=== PATIENT | female | born 1985 | race American Indian/Alaskan Native ===

== ENCOUNTER 2019-01-31 21:15 | Emergency (ER) | payer MEDICAID ==
--- NOTE | 2019-01-31 21:55 | Event Note ---
ED Screening Note Date of service: 01/31/19 Time: 21:53 ED Screening Note: This is a 33 y.o. F. that presents to the ER with a painful abscess to left axilla x 3 days. Reports prior history of abscess. Denies drainage, fever, chills, or weakness. This initial assessment/diagnostic orders/clinical plan/treatment(s) is/are subject to change based on patients health status, clinical progression and re- assessment by fellow clinical providers in the ED. Further treatment and workup at subsequent clinical providers discretion. Patient/guardian urged not to elope from the ED as their condition may be serious if not clinically assessed and managed. Initial orders include:
[2019-02-01] MEDS ORDERED: XYLOCAINE 1% MPF 5 mL INFILTRATI ONE (01:00)
--- NOTE | 2019-02-01 01:43 | Emergency Department Report ---
- General Chief complaint: Skin/Abscess/Foreign Body Stated complaint: CYST Time Seen by Provider: 01/31/19 21:52 Source: patient Mode of arrival: Ambulatory Limitations: No Limitations - History of Present Illness Initial comments: Patient is Afro-[place] female presents for left axillary abscess 2 x 3 cm fluctuant was erythema and pain to touch this recurrent problem this patient for the last 3 years with release 1 annually station presents tonight for incision and drainage of abscess MD complaint: abscess/boil (lac ) Onset/Timin -: days(s) Location: LUE Severity: moderate Severity scale (0 -10): 5 Quality: burning, aching Consistency: constant Improves with: none Worsens with: palpation, movement Context: other (recurring abscess ) Associated symptoms: denies other symptoms Treatments Prior to Arrival: none - Related Data Previous Rx's Medication Instructions Recorded Last Taken Type Clindamycin [Clindamycin CAP] 300 mg PO Q8H 10 Days #30 cap 02/01/19 Unknown Rx traMADol [Ultram] 50 mg PO Q6HR PRN #12 tablet 02/01/19 Unknown Rx Allergies Allergy/AdvReac Type Severity Reaction Status Date / Time No Known Allergies Allergy Verified 01/31/19 21:17 Abscess Boil HPI - HPI Chief Complaint: Skin/Abscess/Foreign Body Stated Complaint: CYST Time Seen by Provider: 01/31/19 21:52 Home Medications: Previous Rx's Medication Instructions Recorded Last Taken Type Clindamycin [Clindamycin CAP] 300 mg PO Q8H 10 Days #30 cap 02/01/19 Unknown Rx traMADol [Ultram] 50 mg PO Q6HR PRN #12 tablet 02/01/19 Unknown Rx Allergies/Adverse Reactions: Allergies Allergy/AdvReac Type Severity Reaction Status Date / Time No Known Allergies Allergy Verified 01/31/19 21:17 ED Review of Systems ROS: Stated complaint: CYST Other details as noted in HPI Constitutional: denies: chills, fever Eyes: denies: eye pain, eye discharge, vision change ENT: denies: ear pain, throat pain Respiratory: denies: cough, shortness of breath, wheezing Cardiovascular: denies: chest pain, palpitations Endocrine: no symptoms reported Gastrointestinal: denies: abdominal pain, nausea, diarrhea Genitourinary: denies: urgency, dysuria, discharge Musculoskeletal: denies: back pain, joint swelling, arthralgia Skin: lesions (lac abscess ). denies: rash Neurological: denies: headache, weakness, paresthesias Psychiatric: denies: anxiety, depression Hematological/Lymphatic: denies: easy bleeding, easy bruising ED Past Medical Hx - Past Medical History Previous Medical History?: No - Surgical History Past Surgical History?: Yes Additional Surgical History: C section x4, - Social History Smoking Status: Never Smoker Substance Use Type: None - Medications Home Medications: Home Medications Medication Instructions Recorded Confirmed Last Taken Type Clindamycin [Clindamycin CAP] 300 mg PO Q8H 10 Days #30 cap 02/01/19 Unknown Rx traMADol [Ultram] 50 mg PO Q6HR PRN #12 tablet 02/01/19 Unknown Rx ED Physical Exam - General Limitations: No Limitations General appearance: alert, in no apparent distress - Head Head exam: Present: atraumatic, normocephalic - Eye Eye exam: Present: normal appearance, PERRL, EOMI Pupils: Present: normal accommodation - ENT ENT exam: Present: mucous membranes moist - Neck Neck exam: Present: normal inspection, full ROM. Absent: tenderness, lymphadenopathy - Respiratory Respiratory exam: Present: normal lung sounds bilaterally. Absent: respiratory distress, wheezes, stridor, chest wall tenderness - Cardiovascular Cardiovascular Exam: Present: regular rate, normal rhythm, normal heart sounds. Absent: systolic murmur, diastolic murmur, rubs, gallop - GI/Abdominal GI/Abdominal exam: Present: soft, normal bowel sounds. Absent: distended, tenderness, bruit, hernia - Rectal Rectal exam: Present: deferred - Extremities Exam Extremities exam: Present: normal inspection, full ROM, tenderness (left axillary abscess ), normal capillary refill. Absent: pedal edema, joint swelling, calf tenderness - Back Exam Back exam: Present: normal inspection, full ROM. Absent: tenderness, CVA tenderness (R), CVA tenderness (L), rash noted - Neurological Exam Neurological exam: Present: alert, oriented X3, CN II-XII intact, normal gait, reflexes normal. Absent: motor sensory deficit - Psychiatric Psychiatric exam: Present: normal affect, normal mood - Skin Skin exam: Present: warm, dry, intact, normal color, erythema (left ac abscess ). Absent: rash ED Course Vital Signs 01/31/19 01/31/19 21:19 21:52 Temperature 99.1 F 99.1 F Pulse Rate 86 90 Respiratory 18 16 Rate Blood Pressure 144/73 144/73 O2 Sat by Pulse 99 99 Oximetry - I & D Left Arm Type of Procedure: Simple Site: lac Blade Size: 11 I & D Procedure: betadine prep, sterile dressing applied Progress: Left before meals abscess 2 x 3 cm site cleaned with betadine solution anesthesia 1% lidocaine 2 mL incision with 11 blade scaple x 1 wound probed with 6 inch blunt forcepts, moderate purulent drianage, wound irrigated with 60cc sterile saline wound packed with 1" iodoform guaze sterile dressing applied all bleeding controlled pt tolerated procedure with minimal distress. ED Medical Decision Making - Medical Decision Making left ac abscess for I&D seed procedure noted all bleeding controlled pt tolerated procedure with minimal distress, pt given wound care instructions will follow up with pcp in 2-3 days for wound check and overall will dc to home with rx for clindamycin, ultram, pt verbalized agreement and understanding with discarge plan. Critical care attestation.: If time is entered above; I have spent that time in minutes in the direct care of this critically ill patient, excluding procedure time. ED Disposition Clinical Impression: Abscess of left axilla Disposition: DC-01 TO HOME OR SELFCARE Is pt being admited?: No Does the pt Need Aspirin: No Condition: Stable Instructions: Abscess Incision and Drainage (ED), Abscess (ED) Prescriptions: Clindamycin [Clindamycin CAP] 300 mg PO Q8H 10 Days #30 cap traMADol [Ultram] 50 mg PO Q6HR PRN #12 tablet PRN Reason: Pain Referrals: PRIMARY CARE, [Primary Care Provider] - 3-5 Days [facility] [Outside] - 3-5 Days Forms: Work/School Release Form(ED) Time of Disposition: 01:51
[2019-02-01 02:10] VITALS: BP 147/98
== END 2019-02-01 02:09 | disposition home or self-care (01) ==
LOC: ED 21:15
DX: L02.412 Cutaneous abscess of left axilla (principal)
CPT/HCPCS: 99282